=== PATIENT | male | born 1965 | race Caucasian/White ===

== ENCOUNTER 2024-06-08 02:00 | Emergency (ER) | payer SELFPAY ==
[2024-06-08 02:02] VITALS: BP 104/66; PULSE 62; RESP 16; TEMP 36.6; O2SAT 98
--- NOTE | 2024-06-08 02:15 | DI.RAD_ITS ---
Exam(s) XR CHEST 2V PA LATERAL EXAM: XR CHEST 2V PA LATERAL CLINICAL HISTORY: fall, right lateral chest wall pain, eval fx TECHNIQUE: 2D digital imaging was performed of the chest. Two images were obtained. PA and lateral views were obtained. COMPARISON: No exams were available for comparison FINDINGS: MEDIASTINUM: Normal. HEART: Normal. PULMONARY VASCULATURE: Normal. LUNGS: Clear. PLEURAL SPACE: There is a tiny right apical pneumothorax. No left pneumothorax. No pleural effusion . BONE:There are fractures involving the right 7th and 8th ribs. The 8th rib is displaced. The 7th ri b fracture is nondisplaced. OTHER FINDINGS:Normal. IMPRESSION: 1. There is a nondisplaced right 7th rib fracture and displaced right 8th rib fracture. 2. There is a small right apical pneumothorax. 3. Findings were discussed with the Radha Martinez at 9:50 a.m. on 06/08/2024. DATA REPOSITORY: RADIATION DOSE DELIVERED:
[2024-06-08] MEDS: Acetaminophen 500 MG TAB 1000 MG PO (02:25)
[2024-06-08] MEDS: Ketorolac 15 MG/ML VIAL IM (02:25)
--- NOTE | 2024-06-08 02:52 | W.ED.GENAD ---
Discharge Plan Disposition Patient Disposition: Home Condition: Good Discharge Details Clinical Impression: Fracture, ribs ED Provider: Dara Herrera Home Meds and New Rx's Prescriptions: New oxycodone 5 mg capsule 5 mg PO Q4H PRNQty: 30 0RF oxycodone 5 mg capsule 5 mg PO Q4H PRNQty: 30 0RF Continued jpadiklsr-vftvverv-wjvgwhc ala [Biktarvy] PO DAILY atorvastatin 10 mg tablet 10 mg PO DAILY Discharge Instructions Instructions: Rib fractures in adults Additional Instructions: Tylenol 650 mg every 4 hours. Ibuprofen 400mg every 4 hours. Oxcycodone 5mg every 4 hours for the first 3 days. After three days take tylenol and ibuprofen as needed for pain (follow the directions on the bottle); you can also take 5mg of oxycodone up to every 4 hours as needed. Follow up with your primary care doctor when you return home next week. Return to the emergency department for new or worsening symptoms including uncontrolled pain, difficulty breathing, or if you have any other concerns. HPI General Mode of arrival: ambulatory. Date/Time Provider Initiated Documentation: 06/08/24 02:08. Limitations to Documentation: no limitations. Information obtained by: patient. HPI Narrative: 59yo M with hx HIV otherwise healthy presenting for right chest wall pain after a fall. About an hour ago was getting back into bed, reached out for bedside table and missed, falling and striking his right chest on the bedframe. Pain is severe, non-radiating, and worse with deep breathing. Denies pain or injury elsewhere. Did not strike his head or lose consciousness. He is otherwise in his usual state of health. Related Data Home Medications ?Medication ?Instructions ?Recorded ?Confirmed atorvastatin 10 mg tablet 10 mg PO DAILY 06/08/24 06/08/24 dwglrucar-lpjvefyp-yespvpd ala PO DAILY 06/08/24 oxycodone 5 mg capsule 5 mg PO Q4H PRN #30 caps 06/08/24 oxycodone 5 mg capsule 5 mg PO Q4H PRN #30 caps 06/08/24 Previous Rx's ?Medication ?Instructions ?Recorded oxycodone 5 mg capsule 5 mg PO Q4H PRN #30 caps 06/08/24 oxycodone 5 mg capsule 5 mg PO Q4H PRN #30 caps 06/08/24 Allergies Allergy/AdvReac Type Severity Reaction Status Date / Time No Known Allergies Allergy Unverified 06/08/24 02:28 General Stated Complaint: Fall/Non TraumaCriteria BETTE: 3 Review of Systems Narrative: see HPI Exam Narrative Exam Narrative: GENERAL: Alert. SKIN: Warm and well perfused. HEAD: Atraumatic, normocephalic without edema, discoloration or evidence of trauma. EYES: No scleral icterus or conjunctival injection. NECK: Trachea midline. No discolorations or edema. CV: Regular rate and rhythm, Normal s1 and s2. CHEST: No abrasions or ecchymosis. Chest symmetric with respirations. Point tenderness to right lateral chest wall in the area of 6th-7th ribs. No crepitus. No step-offs. Lungs are clear to auscultation bilaterally. ABDOMEN: No ecchymosis or abrasions. Soft, nondistended, nontender. BACK: No abrasions, skin openings, or ecchymosis. MSK: No gross deformities NEURO: GCS 15. Moves all extremities freely against gravity. Course Vital Signs Vital signs: Vital Signs Temperature 36.6 C 06/08/24 02:02 Pulse 62 06/08/24 02:02 Respiratory Rate 16 06/08/24 02:02 Blood Pressure 104/66 06/08/24 02:02 Pulse Oximetry 98 06/08/24 02:02 Temperature 36.6 C 06/08/24 02:02 Temperature Source Temporal Artery Scan 06/08/24 02:02 Pulse 62 06/08/24 02:02 Respiratory Rate 16 06/08/24 02:02 Respiratory Effort Normal, Non-Labored 06/08/24 02:07 Blood Pressure 104/66 06/08/24 02:02 Pulse Oximetry 98 06/08/24 02:02 Oxygen Delivery Method Room Air 06/08/24 02:02 Oxygen Flow Rate 0 06/08/24 02:02 Pain Level 8 06/08/24 02:02 Medical Decision Making 59yo M with hx HIV otherwise healthy presenting for right chest wall pain after a fall. About an hour ago was getting back into bed, reached out for bedside table and missed, falling and striking his right chest on the bedframe. Vital signs reassuring on arrival, on exam he has point tenderness to the right lateral chest wall at the 6th and 7th ribs consistent with rib fracture/s. Remainder of exam benign. Will treat initially with tylenol and toradol, add oxycodone if not sufficient. CXR independently reviewed, no pneumothorax and ? 7th rib fx on my view, agree with radiology read below. On reassessment he is well appearing wtih reassuring vital signs, pain adequately controlled. Educated on incentive spirometery and pulling good volume . With normal vital signs, no pulmonary comorbiditites, overall well, unilateral rib fracture, and adequate pain control appropriate for outpatient treatment. No indication for CT imaging at this time. Instructed on importance of breathing deeply and adequate pain control. Prescribed course of oxycodone, advised to followup closely with PCP when he returns home next week for further management. Discharged home; discharge instructions and return precautions were reviewed with patient who verbalized understanding. All questions were answered and he is in full agreement with the plan. Imaging Data Radiologic Study: Imaging: X-Ray Radiologist's impression: IMPRESSION: 1. Suboptimally visualized apparent deformity of the posterolateral right 7th rib, evaluation limited by superimposition of right hemidiaphragm, potentially signifying a fracture of indeterminate age. 2. Equivocal subtle fracture of the posterolateral right 6th rib. 3. There is no visible BB which was reportedly placed at the site of pain. Quality:SDOH Health Related Social Needs: No Data to Display [facility] All Active Problems (Updated 06/08/24 @ 04:07 by Dara Herrera MD) Fracture, ribs (Acute) Social History Smoking/Tobacco Use Status: Former Tobacco Use Smoking risk assessment performed?: Yes Alcohol Intake: current Alcohol Intake frequency: holidays/special occasions only Alcohol type: beer and wine Substance use type: does not use Housing: house [facility] Have you Been Recently Intoxicated or Drunk Within the Last 30 days?: No Have you Ever Experienced Previous Episodes of Alcohol Withdrawal?: No Have you ever Experienced Withdrawal Seizures?: No Have you ever Experienced Delirium Tremens(DT)s?: No Have you ever undergone Alcohol Rehabilitation Treatment (i.e, inpt ot outpatient treatment programs)?: No Have you ever Experienced Blackouts?: No Have you ever Combined Alcohol with other Downers within the last 90 days?: No Have you ever Combined Alcohol with any other Substance of Abuse during the last 90 days?: No Positive Blood Alcohol level on Presentation? [PCS.BAL]: No Evidence of Increased Autonomic Activity (i.e. HR>120, tremor, sweating, agitation, nausea)?: No Result: 0
[2024-06-08] MEDS: oxyCODONE 5 MG TAB PO (03:02)
--- NOTE | 2024-06-08 03:54 | DI.VRAD_ITS ---
PROCEDURE INFORMATION: Exam: XR Chest Exam date and time: 06/08/2024 2:33 AM Age: 59 years old Clinical indication: Injury or trauma; Blunt trauma (contusions or hematomas); Injury date: 06/06/24; Injury details: Fall, right lat chest wall pain; Additional info: Bb placed on site of pain TECHNIQUE: Imaging protocol: Radiologic exam of the chest. Views: 2 views. COMPARISON: No relevant prior studies available. FINDINGS: Lungs: Unremarkable. No consolidation. Pleural spaces: Unremarkable. No pleural effusion. No pneumothorax. Heart/Mediastinum: Unremarkable. No cardiomegaly. Bones/joints: Suboptimally visualized apparent deformity of the posterolateral right 7th rib, evaluation limited by superimposition of right hemidiaphragm, potentially signifying a fracture of indeterminate age. Equivocal subtle fracture of the posterolateral right 6th rib. Other findings: There is no visible BB which was reportedly placed at the site of pain. IMPRESSION: 1. Suboptimally visualized apparent deformity of the posterolateral right 7th rib, evaluation limited by superimposition of right hemidiaphragm, potentially signifying a fracture of indeterminate age. 2. Equivocal subtle fracture of the posterolateral right 6th rib. 3. There is no visible BB which was reportedly placed at the site of pain. Dictated and Authenticated by: Ashish Slater MD. Ordering:BRIANNA Diamond MD
[2024-06-08] MEDS: Ibuprofen 400 MG TAB 1600 MG PO (04:23)
[2024-06-08 04:26] VITALS: BP 110/70; PULSE 60; RESP 16; O2SAT 98
--- NOTE | 2024-06-08 09:53 | W.ED.FU ---
Date of service: 06/08/24 Time of Service: 09:53 Follow Up Plan: Call received from radiologist regarding chest x-ray by Dr. Butler small right apical pneumothorax with adjacent rib fracture on the seventh rib. Call made to patient, no answer, left. 1003: Spoke with Ulysses, he reports no increased SOB, he is using an incentive spirometer, denies any new SOB, new Pain, or worsening. I did discuss strict return instructions if worsening, and follow up when returning to home. He verbalized understanding and all his questions were answered to the best of my ability.
== END 2024-06-08 04:26 | disposition home or self-care (01) ==
LOC: ER 04:36
PROVIDERS: Emergency Provider Student in an Organized Health Care Education/Training Program
DX: S22.41XA Multiple fractures of ribs, right side, initial encounter for closed fracture (principal); W01.190A Fall on same level from slipping, tripping and stumbling with subsequent striking against furniture, initial encounter
CPT/HCPCS: 96372; 99284; 71046; 99283; J1885